=== PATIENT | female | born 1970 | race Caucasian/White ===

== ENCOUNTER 2019-04-02 05:30 | Day surgery (SDC) | payer MEDICAID ==
[2019-03-29 15:51] LABS: BASOPHILS % (AUTO) 0.3 % (0-1); EOSINOPHILS # (AUTO) 0.1 X10'3 (0-0.9); EOSINOPHILS % (AUTO) 1.3 % (0-6); LYMPHOCYTES # (AUTO) 2.2 X10'3 (1.1-4.8); LYMPHOCYTES % (AUTO) 28.9 % (21-51); MEAN CORPUSCULAR HEMOGLOBIN 24.8 PG (27.0-31.0); MEAN CORPUSCULAR HGB CONC 32.1 g/dL (33.0-36.5); MEAN CORPUSCULAR VOLUME 77.1 FL (78-98); MEAN PLATELET VOLUME 7.1 FL (7.4-10.4); MONOCYTES # (AUTO) 0.7 X10'3 (0-0.9); MONOCYTES % (AUTO) 8.5 % (2-12); NEUTROPHILS # (AUTO) 4.7 X10'3 (1.8-7.7); PRE OP HEMATOCRIT 29.5 % (35.0-45.0); PRE OP PLATELET COUNT 404 X10'3 (140-440); RED BLOOD COUNT 3.83 X10'6 (4.20-5.60)
[2019-03-29 15:53] LABS: PRE OP HEMOGLOBIN 9.5 g/dL (12.0-16.0)
[2019-03-29 15:56] LABS: ALBUMIN 3.7 G/DL (3.4-5.0); ALBUMIN/GLOBULIN RATIO 0.8 (1.1-1.5); ALKALINE PHOSPHATASE 78 IU/L (46-116); BLOOD UREA NITROGEN 18 MG/DL (7-18); BUN/CREATININE RATIO 27.3 (6.6-38.0); CALCIUM 9.1 MG/DL (8.5-10.1); CHLORIDE 108 MMOL/L (99-107); CREATININE 0.66 MG/DL (0.40-0.90); PRE OP ALT 19 U/L (30-65); PRE OP ANION GAP 12 (8-16); PRE OP AST 10 U/L (10-37); PRE OP BILIRUB, TOTAL 0.3 MG/DL (0.0-1.0); PRE OP GLUCOSE 86 MG/DL (70-104); PRE OP POTASSIUM 4.3 MMOL/L (3.4-5.1); PRE OP SODIUM 143 MMOL/L (135-145); TOTAL CARBON DIOXIDE 23.2 MMOL/L (24-32); TOTAL PROTEIN 8.4 G/DL (6.4-8.2); eGFR > 90 ML/MIN
[~2019-04-02] VITALS: Ht 172.7 cm; Wt 90.7 kg
[2019-04-02] VITALS (7 sets, daily range): BP systolic 119–127; BP diastolic 70–83
[~2019-04-02 05:30] MED LIST: TOP100T PO; TRAM50TA2 PO; ceFAZolin inj. 2,000 MG in dextrose 5%-water 50ml 50 ML IV ONE; famotidine 20mg tablet PO ONE; ringers solution, lacted 1,000 ML IV SCH
[2019-04-02] MEDS ORDERED: LIDOcaine 1% (10mg/ml) 2ml vial ONE (05:55)
[2019-04-02 06:50] LABS: ISTAT ANION GAP 13 (8-12); ISTAT BUN 14 mg/dL (6-19); ISTAT CL 109 mmol/L (99-107); ISTAT CREATININE 0.6 mg/dL (0.6-1.1); ISTAT GLUCOSE 86 mg/dL (70-104); ISTAT HGB 10.9 g/dl (12.0-16.0); ISTAT Hct 32 %PCV (35-48); ISTAT IONIZED CALCIUM 1.27 mmol/L (1.03-1.32); ISTAT K 3.5 mmol/L (3.5-5.1); ISTAT NA 141 mmol/L (135-145); ISTAT TOTAL CO2 19 mmol/L (24-32); ISTAT eGFR > 90 ML/MIN; POC BUN/CREATININE RATIO 23.3 (6.6-38.0)
[2019-04-02] MEDS ORDERED: sevoflurane 250ml liquid IH ONE (07:15)
[2019-04-02] MEDS ORDERED: fentaNYL/PF 50MCG/1 ML 2ML syringe ONE (07:24)
[2019-04-02] MEDS ORDERED: midazolam 2 mg/2 ml injection ONE ×2 (07:24)
[2019-04-02] MEDS ORDERED: triamcinolone acetonide 40mg/ml inj ONE (07:39)
[2019-04-02] MEDS ORDERED: LIDOcaine 1% 30ml preserv. free vial ONE (07:40)
[2019-04-02] MEDS ORDERED: BUPIVAcaine/PF 2.5mg/ml (0.25%) 10ml vial ONE (07:40)
--- NOTE | 2019-04-02 07:50 | NUR ---
Received from OR via BED, accompanied by Anesthesiologist DR WELSH-- and report given by Anesthesiolgist. PATIENT A&OX4, DENIES PAIN, V/S WNL, NEUROVASCULAR CHECKS INTACT, 20G PIV RUE, SCD ON, BANDAID TO LEFT SHOULDER CDI
[2019-04-02] MEDS ORDERED: ringers solution, lacted 1,000 ML IV SCH (07:55)
[2019-04-02] MEDS ORDERED: ondansetron/PF 4mg/2ml inj IV PRN (07:55)
[2019-04-02] MEDS ORDERED: proCHLORperazine 10 MG/2 ml inj IV PRN (07:55)
[2019-04-02] MEDS ORDERED: meperidine/PF 25mg/ml syringe IV PRN ×3 (07:55)
[2019-04-02] MEDS ORDERED: morphine 4 MG/ML inj SYRINge IV PRN ×2 (07:55)
[2019-04-02] MEDS ORDERED: HYDROcodone/acetaminophen 10/325mg tab PO PRN (08:10)
--- NOTE | 2019-04-02 08:40 | NUR ---
PATIENT A&OX4, DENIES PAIN, V/S WNL, NEUROVASCULAR CHECKS INTACT, 20G PIV RUE D/C, SCD OFF, BANDAID TO LEFT SHOULDER CDI. I HAVE REVIEWED D/C INSTRUCTIONS WITH PATIENT AND FAMILY AND THEY HAVE VERBALIZED UNDERSTANDING. PATIENT D/C HOME WITH ALL BELONGINGS AND FAMILY GAVE TRANSPORT HOME.
[2019-04-02] MEDS ORDERED: LIDOcaine 2% (20mg/ml) 5ml vial ONE (09:01)
[2019-04-02] MEDS ORDERED: propofol inj 20 ML IV ONE (09:01)
[2019-04-02] MEDS ORDERED: ROPIVAcaine 0.5% (5mg/ml) 30ml vial ONE (09:01)
== END 2019-04-02 08:40 | disposition home or self-care (01) ==
LOC: PAS 05:30
PROVIDERS: ATTEND Orthopaedic Surgery
PROC: 0RSKXZZ Reposition Left Shoulder Joint, External Approach (ICD-10-PCS; principal; 2019-04-02 07:15)
DX: M75.02 Adhesive capsulitis of left shoulder (principal); M25.512 Pain in left shoulder
CPT/HCPCS: 23700; 36415; 80047; 80053; 85025; J0690; J2001; J2250; J2704; J3010; J3301; J3490; J7060; J2795; J7120

== ENCOUNTER 2019-04-06 02:02 | Emergency (ER) | payer MEDICAID ==
[~2019-04-06] VITALS: Ht 172.7 cm; Wt 90.0 kg
[~2019-04-06 02:02] MED LIST changes: -ceFAZolin inj. 2,000 MG in dextrose 5%-water 50ml 50 ML IV ONE; -famotidine 20mg tablet PO ONE; -ringers solution, lacted 1,000 ML IV SCH
[2019-04-06] MEDS ORDERED: ondansetron/PF 4mg/2ml inj IV ONE (02:25)
[2019-04-06] MEDS ORDERED: normal saline 1000ML IV soln IVB ONE (02:25)
--- NOTE | 2019-04-06 02:34 | NUR ---
medical supply technician at bedside.
[2019-04-06] MEDS ORDERED: ketorolac trometh. 30mg/ml inj. IV ONE (02:35)
--- NOTE | 2019-04-06 02:35 | NUR ---
Patient states she drove self to ED and prefers to try non-narcotic pain medication first. Dr. Ledezma gives order for 30mg toradol IV.
[2019-04-06 02:39] LABS: BASOPHILS % (AUTO) 0.2 % (0-1); EOSINOPHILS % (AUTO) 0.2 % (0-6); HEMATOCRIT 30.4 % (35.0-45.0); HEMOGLOBIN 9.8 g/dl (12.0-16.0); LYMPHOCYTES # (AUTO) 1.5 X10'3 (1.1-4.8); LYMPHOCYTES % (AUTO) 11.1 % (21-51); MEAN CORPUSCULAR HEMOGLOBIN 24.5 PG (27.0-31.0); MEAN CORPUSCULAR HGB CONC 32.1 g/dL (33.0-36.5); MEAN CORPUSCULAR VOLUME 76.4 FL (78-98); MEAN PLATELET VOLUME 7.1 FL (7.4-10.4); MONOCYTES # (AUTO) 1.4 X10'3 (0-0.9); MONOCYTES % (AUTO) 10.4 % (2-12); NEUTROPHILS # (AUTO) 10.4 X10'3 (1.8-7.7); NEUTROPHILS % (AUTO) 78.1 % (42-75); PLATELET COUNT 426 X10'3 (140-440); RED BLOOD COUNT 3.97 X10'6 (4.20-5.60); RED CELL DISTRIBUTION WIDTH 18.3 % (11.5-14.5); WHITE BLOOD COUNT 13.3 X10'3 (4.5-11.0)
[2019-04-06 02:53] LABS: ALANINE AMINOTRANSFERASE 17 U/L (12-78); ALBUMIN 3.7 G/DL (3.4-5.0); ALBUMIN/GLOBULIN RATIO 0.8 (1.1-1.5); ALKALINE PHOSPHATASE 72 IU/L (46-116); ANION GAP 13 (8-16); ASPARTATE AMINO TRANSFERASE 14 U/L (10-37); BILIRUBIN,TOTAL 0.3 MG/DL (0.1-1.0); BLOOD UREA NITROGEN 20 MG/DL (7-18); BUN/CREATININE RATIO 22.5 (6.6-38.0); CHLORIDE 107 MMOL/L (99-107); CREATININE 0.89 MG/DL (0.40-0.90); GLUCOSE 113 MG/DL (70-104); LIPASE 117 U/L (73-393); POTASSIUM 3.2 MMOL/L (3.5-5.1); SODIUM 141 MMOL/L (135-145); TOTAL CARBON DIOXIDE 21.4 MMOL/L (24-32); TOTAL PROTEIN 8.2 G/DL (6.4-8.2); eGFR 68 ML/MIN
[2019-04-06 03:01] LABS: CALCIUM 8.9 MG/DL (8.5-10.1)
[2019-04-06] MEDS ORDERED: HYDR-3965 PO (03:02)
[2019-04-06] MEDS ORDERED: FLO0.4C PO (03:02)
[2019-04-06 03:08] LABS: CLARITY,URINE SLIGHTLY CLOUDY (Clear); COLOR,URINE YELLOW (Yellow); GLUCOSE, URINE NEGATIVE (Neg); KETONES,URINE NEGATIVE (Neg); LEUKOCYTE ESTERASE ,URINE NEGATIVE (Neg); NITRITES, URINE NEGATIVE (Neg); OCCULT BLOOD,URINE TRACE-INTACT (Neg); PROTEIN,URINE NEGATIVE (Neg); UA COLLECTION TYPE CLN CATCH MIDSTREAM; UROBILINOGEN,URINE 0.2 E.U/dL (0.2-1.0)
[2019-04-06 03:09] LABS: URINE HCG NEGATIVE (NEG)
[2019-04-06 03:15] LABS: BACTERIA,URINE FEW /HPF (Neg); RBC,URINE 0-2 /HPF (0-2); SQUAMOUS EPITHELIAL CELL,UR MODERATE /LPF (FEW); WBC,URINE 0-4 /HPF (0-4)
[2019-04-06] MEDS ORDERED: metoclopramide 5 mg/ml inj IV ONE (03:50)
[2019-04-06] MEDS ORDERED: morphine 4 MG/ML inj SYRINge IV ONE (03:50)
--- NOTE | 2019-04-06 04:09 | NUR ---
Patient resting comfortably and reports resolution of pain. Warm blanket provided and curtain pulled closed.
--- NOTE | 2019-04-06 04:39 | NUR ---
Patient complaining of increasing pain. 4mg morphine given. Scanner is not working in the room so patient ID verified using name and date of and medication administered manually in EMR.
[2019-04-06] MEDS: morphine 4 MG/ML inj SYRINge IV PRN ×2 (04:40→05:24)
--- NOTE | 2019-04-06 05:24 | NUR ---
Patient continues to experience pain but reports that she is starting to feel better and is about ready to go home. Last ordered dose of morphine is given and she will be observed for a short time before providing a cab ride home.
[2019-04-06 05:25] VITALS: BP 144/92
[2019-04-06] MEDS ORDERED: OLANZapine 2.5MG tablet PO SCH (08:00)
[2019-04-06] MEDS ORDERED: LORazepam 1 MG tablet PO ONE (08:00)
== END 2019-04-06 05:41 | disposition home or self-care (01) ==
LOC: ER 02:02
DX: N20.0 Calculus of kidney (principal); R11.2 Nausea with vomiting, unspecified; Z91.030 Bee allergy status; Z79.899 Other long term (current) drug therapy
CPT/HCPCS: 36415; 74176; 80053; 81001; 81025; 83690; 85025; 96361; 96374; 96375; 96376; 99284; J1885; J2270; J2405; J2765; J7030

== ENCOUNTER 2019-07-30 09:00 | Inpatient (IN) | payer MEDICAID ==
[2019-07-28 10:21] LABS: CLARITY,URINE CLEAR (Clear); COLOR,URINE YELLOW (Yellow); GLUCOSE, URINE NEGATIVE (Neg); KETONES,URINE NEGATIVE (Neg); LEUKOCYTE ESTERASE ,URINE NEGATIVE (Neg); NITRITES, URINE NEGATIVE (Neg); OCCULT BLOOD,URINE TRACE-INTACT (Neg); PROTEIN,URINE NEGATIVE (Neg); UROBILINOGEN,URINE 0.2 E.U/dL (0.2-1.0)
[2019-07-28 10:21] LABS: BASOPHILS % (AUTO) 0.3 % (0-1); EOSINOPHILS # (AUTO) 0.2 X10'3 (0-0.9); EOSINOPHILS % (AUTO) 1.7 % (0-6); LYMPHOCYTES # (AUTO) 1.8 X10'3 (1.1-4.8); MEAN CORPUSCULAR HEMOGLOBIN 26.9 PG (27.0-31.0); MEAN CORPUSCULAR HGB CONC 32.7 g/dL (33.0-36.5); MEAN CORPUSCULAR VOLUME 82.4 FL (78-98); MEAN PLATELET VOLUME 7.3 FL (7.4-10.4); MONOCYTES # (AUTO) 0.6 X10'3 (0-0.9); MONOCYTES % (AUTO) 7.2 % (2-12); NEUTROPHILS # (AUTO) 6.3 X10'3 (1.8-7.7); NEUTROPHILS % (AUTO) 70.8 % (42-75); PRE OP HEMATOCRIT 36.3 % (35.0-45.0); PRE OP HEMOGLOBIN 11.9 g/dL (12.0-16.0); PRE OP PLATELET COUNT 458 X10'3 (140-440); RED CELL DISTRIBUTION WIDTH 20.9 % (11.5-14.5)
[2019-07-28 10:26] LABS: UA COLLECTION TYPE CLN CATCH MIDSTREAM
[2019-07-28 10:28] LABS: BACTERIA,URINE FEW /HPF (Neg); MUCUS STRANDS NONE SEEN /LPF (Neg); RBC,URINE 0-2 /HPF (0-2); SQUAMOUS EPITHELIAL CELL,UR MODERATE /LPF (FEW); WBC,URINE 0-4 /HPF (0-4)
[2019-07-28 10:33] LABS: PRE OP PROTIME 9.9 SECONDS (9.0-12.0)
[2019-07-28 10:35] LABS: ALBUMIN 3.7 G/DL (3.4-5.0); ALBUMIN/GLOBULIN RATIO 0.9 (1.1-1.5); ALKALINE PHOSPHATASE 77 IU/L (46-116); BLOOD UREA NITROGEN 10 MG/DL (7-18); BUN/CREATININE RATIO 16.7 (6.6-38.0); CALCIUM 9.3 MG/DL (8.5-10.1); CHLORIDE 109 MMOL/L (99-107); PRE OP ALT 33 U/L (30-65); PRE OP ANION GAP 11 (8-16); PRE OP AST 20 U/L (10-37); PRE OP BILIRUB, TOTAL 0.2 MG/DL (0.0-1.0); PRE OP GLUCOSE 96 MG/DL (70-104); PRE OP POTASSIUM 4.2 MMOL/L (3.4-5.1); PRE OP SODIUM 144 MMOL/L (135-145); TOTAL CARBON DIOXIDE 24.2 MMOL/L (24-32); eGFR > 90 ML/MIN
[2019-07-28 10:39] LABS: PLATELET ESTIMATE INCREASED
[2019-07-28 10:40] LABS: ANISOCYTOSIS 2+
[2019-07-28 10:48] LABS: HCG SERUM QL NEGATIVE
[2019-07-30] VITALS (19 sets, daily range): BP systolic 121–152; BP diastolic 60–92
[~2019-07-30] VITALS: Ht 172.7 cm; Wt 95.7 kg
[~2019-07-30 09:00] MED LIST changes: +IBUP-1984 PO; +ceFOXitin 2 GM ADDvantage bag 100 ML IV ONE; +ceFOXitin 2 GM ADDvantage bag 50 ML IV ONE; +famotidine 20mg tablet PO ONE; +ringers solution, lacted 1,000 ML IV SCH
[2019-07-30] MEDS ORDERED: propofol inj 20 ML IV ONE (12:03)
[2019-07-30] MEDS ORDERED: fentaNYL /PF 50mcg/ml 5ml ampule ONE (12:03)
[2019-07-30] MEDS ORDERED: midazolam 2 mg/2 ml injection ONE (12:03)
[2019-07-30] MEDS ORDERED: rocuronium 10mg/ml inj IV ONE (12:03)
[2019-07-30] MEDS ORDERED: sevoflurane 250ml liquid IH ONE (12:04)
[2019-07-30] MEDS ORDERED: acetaminophen 1000 MG/100ml vial IV ONE (12:04)
[2019-07-30] MEDS ORDERED: BUPIVAcaine/PF 2.5 mg/ml (0.25%) 30ml vial ONE (12:13)
[2019-07-30] MEDS ORDERED: dexamethasone sod phosphate 4mg/ml inj. ONE (13:12)
[2019-07-30] MEDS ORDERED: ceFAZolin 1000mg inj ONE ×2 (14:27→14:30)
[2019-07-30] MEDS ORDERED: fentaNYL/PF 50MCG/1 ML 2ML syringe ONE (14:34)
[2019-07-30] MEDS ORDERED: morphine 2 MG/ML inj. syringe IV PRN (14:50)
[2019-07-30] MEDS ORDERED: meperidine/PF 25mg/ml syringe IV PRN ×3 (14:50)
[2019-07-30] MEDS ORDERED: proCHLORperazine 10 MG/2 ml inj IV PRN (14:50)
[2019-07-30] MEDS ORDERED: ringers solution, lacted 1,000 ML IV SCH (14:50)
[2019-07-30] MEDS ORDERED: ketorolac trometh. 30mg/ml inj. IV ONE (14:50)
[2019-07-30] MEDS ORDERED: morphine 4 MG/ML inj SYRINge IV PRN (14:50)
[2019-07-30] MEDS ORDERED: ondansetron/PF 4mg/2ml inj IV PRN ×2 (14:50→15:20)
[2019-07-30] MEDS ORDERED: HYDROcodone/acetaminophen 10/325mg tab PO PRN ×2 (15:20)
[2019-07-30] MEDS ORDERED: temazepam 15mg capsule PO PRN (15:20)
[2019-07-30] MEDS ORDERED: naloxone 0.4 mg/ml inj IV PRN (15:20)
[2019-07-30] MEDS ORDERED: HYDROcodone/acetaminophen 5mg/325mg tablet PO PRN (15:20)
[2019-07-30] MEDS ORDERED: magnesium hydroxide 30ml (MOM) UD suspension PO PRN (15:20)
[2019-07-30] MEDS ORDERED: diphenhydrAMINE 50 mg/ml inj IV PRN (15:20)
[2019-07-30] MEDS ORDERED: mag hydrox/Alum hydrox/simeth 30ml oral suspension PO PRN (15:20)
[2019-07-30] MEDS ORDERED: normal saline 500ml IV soln 500 ML IV PRN (15:20)
[2019-07-30] MEDS ORDERED: CADD PCA waste documentation MC PRN (15:20)
[2019-07-30] MEDS ORDERED: LORazepam 2 mg/ml vial IV PRN (15:20)
[2019-07-30] MEDS ORDERED: estradiol 0.1mg patch.TDWK TD SCH (15:20)
[2019-07-30] MEDS ORDERED: glycopyrrolate 0.2mg/ml inj ONE (15:25)
[2019-07-30] MEDS ORDERED: ondansetron/PF 4mg/2ml inj ONE (15:25)
[2019-07-30] MEDS ORDERED: neostigmine methylsulfate 1 MG/ML 10ml vial ONE (15:26)
--- NOTE | 2019-07-30 15:44 | NUR ---
Received from OR via BED, accompanied by Anesthesiologist DR GARCIA and report given by Anesthesiologist. PT DROWSY, ABDOMEN W/4 LAP SITES W/BANDAIDS, CDI, ISLAND DRSG TO PUBIS CDI, MARILYN PAD IN PLACE, NO DRAINAGE, GREGORY CATHETER TO GRAVITY DRAINAGE W/LIGYHT YELLOW URINE IN TUBING. Addendum: 07/30/19 at 1626 by Alisa Saleem RN Amended: Links added.
[2019-07-30] MEDS ORDERED: traMADol 50MG tablet PO PRN (16:10)
[2019-07-30] MEDS ORDERED: ibuprofen 200mg tablet PO PRN (16:10)
[2019-07-30 16:24] LABS: BASOPHILS % (AUTO) 0 % (0-1); EOSINOPHILS % (AUTO) 0.2 % (0-6); HEMATOCRIT 30.6 % (35.0-45.0); HEMOGLOBIN 9.9 g/dl (12.0-16.0); LYMPHOCYTES # (AUTO) 1.2 X10'3 (1.1-4.8); LYMPHOCYTES % (AUTO) 6.1 % (21-51); MEAN CORPUSCULAR HEMOGLOBIN 27.2 PG (27.0-31.0); MEAN CORPUSCULAR HGB CONC 32.5 g/dL (33.0-36.5); MEAN CORPUSCULAR VOLUME 83.8 FL (78-98); MEAN PLATELET VOLUME 7.1 FL (7.4-10.4); MONOCYTES # (AUTO) 0.7 X10'3 (0-0.9); MONOCYTES % (AUTO) 3.6 % (2-12); NEUTROPHILS # (AUTO) 17.2 X10'3 (1.8-7.7); NEUTROPHILS % (AUTO) 90.1 % (42-75); PLATELET COUNT 348 X10'3 (140-440); RED BLOOD COUNT 3.66 X10'6 (4.20-5.60); RED CELL DISTRIBUTION WIDTH 20.2 % (11.5-14.5); WHITE BLOOD COUNT 19.1 X10'3 (4.5-11.0)
--- NOTE | 2019-07-30 16:41 | NUR ---
Received report from recovery room nurse Alisa DIAZ. Awaiting arrival to room 349B.
[2019-07-30] MEDS: HYDROmorphone/NS 1 mg/ml CADD 50 ML IV SCH ×4 (16:46→23:00)
[2019-07-30] MEDS ORDERED: HYDROmorphone/NS 1 mg/ml CADD 50 ML IV SCH (17:00)
--- NOTE | 2019-07-30 17:14 | NUR ---
Report called to receiving nurse. Transferred via BED, 1 BAG OF Belongings SENT W/PT TO ROOM 349B, RECEIVING RN AT BEDSIDE TO RECEIVE PT, BLL, CALL LIGHT GIVEN, SIDE RAILS UP, FRIEND AT BEDSIDE. Special Issues communicated to receiving nurse. YES. Addendum: 07/30/19 at 1726 by Alisa Saleem RN Amended: Links added.
--- NOTE | 2019-07-30 17:15 | NUR ---
Patient arrived to room 349B. VSS. Abdomen soft, lap sites CDI. Family at bedside.
[2019-07-30] MEDS: ceFAZolin 1GM/D5W- ADD-VANTAGE 50 ML IV SCH (17:49)
[2019-07-30] MEDS: ringers solution, lacted 1,000 ML IV SCH (17:50)
[2019-07-30 17:54] LABS: ANISOCYTOSIS 3+; HYPOCHROMASIA 1+; PLATELET ESTIMATE NORMAL
[2019-07-30 17:55] LABS: POLYCHROMASIA FEW
[2019-07-30] MEDS: simethicone 80mg chew tab PO SCH (17:56)
--- NOTE | 2019-07-30 18:18 | NUR ---
Patient in room [facility]. I have received report from EMILY Fink and had the opportunity to ask questions and assume patient care.
--- NOTE | 2019-07-30 18:18 | NUR ---
Problems reprioritized. Patient report given, questions answered & plan of care reviewed with Paloma DIAZ.
[2019-07-30] MEDS: docusate sod 100mg capsule PO SCH (20:00)
[2019-07-30] MEDS: topiramate 100mg tablet PO SCH (21:18)
[2019-07-30] MEDS: sennosides/docusate sodium tablet PO SCH (21:18)
[2019-07-31] MEDS: ceFAZolin 1GM/D5W- ADD-VANTAGE 50 ML IV SCH ×2 (00:14→08:34)
[2019-07-31 00:15] VITALS: BP 120/73
[2019-07-31] MEDS: ringers solution, lacted 1,000 ML IV SCH ×2 (00:17→07:19)
[2019-07-31] MEDS: HYDROmorphone/NS 1 mg/ml CADD 50 ML IV SCH ×6 (01:00→11:00)
[2019-07-31 04:30] VITALS: BP 111/66
[2019-07-31 05:22] LABS: BASOPHILS % (AUTO) 0.1 % (0-1); EOSINOPHILS % (AUTO) 0 % (0-6); HEMATOCRIT 26.8 % (35.0-45.0); HEMOGLOBIN 8.8 g/dl (12.0-16.0); LYMPHOCYTES # (AUTO) 1.4 X10'3 (1.1-4.8); MEAN CORPUSCULAR HGB CONC 32.7 g/dL (33.0-36.5); MEAN CORPUSCULAR VOLUME 82.5 FL (78-98); MEAN PLATELET VOLUME 7.2 FL (7.4-10.4); MONOCYTES # (AUTO) 1.1 X10'3 (0-0.9); NEUTROPHILS # (AUTO) 11.7 X10'3 (1.8-7.7); NEUTROPHILS % (AUTO) 81.9 % (42-75); PLATELET COUNT 324 X10'3 (140-440); RED BLOOD COUNT 3.25 X10'6 (4.20-5.60); WHITE BLOOD COUNT 14.2 X10'3 (4.5-11.0)
[2019-07-31 05:27] LABS: ALANINE AMINOTRANSFERASE 27 U/L (12-78); ALBUMIN 2.8 G/DL (3.4-5.0); ALBUMIN/GLOBULIN RATIO 0.8 (1.1-1.5); ALKALINE PHOSPHATASE 58 IU/L (46-116); ANION GAP 8 (8-16); ASPARTATE AMINO TRANSFERASE 18 U/L (10-37); BILIRUBIN,TOTAL 0.7 MG/DL (0.1-1.0); BLOOD UREA NITROGEN 7 MG/DL (7-18); BUN/CREATININE RATIO 13.5 (6.6-38.0); CALCIUM 8.5 MG/DL (8.5-10.1); CHLORIDE 110 MMOL/L (99-107); CREATININE 0.52 MG/DL (0.40-0.90); GLUCOSE 105 MG/DL (70-104); POTASSIUM 4.1 MMOL/L (3.5-5.1); SODIUM 141 MMOL/L (135-145); TOTAL PROTEIN 6.4 G/DL (6.4-8.2); eGFR > 90 ML/MIN
--- NOTE | 2019-07-31 05:30 | NUR ---
Zimmerman catheter removed, per order. Patient tolerated procedure well. Hat placed in toilet and instructed pt to use toilet. Patient agrees. Will continue to monitor patient.
--- NOTE | 2019-07-31 06:45 | NUR ---
Problems reprioritized. Patient report given, questions answered & plan of care reviewed with Maria Antonia Gtz RN.
--- NOTE | 2019-07-31 06:59 | NUR ---
Patient in room [facility]. I have received report from EMILY MENDEZ and had the opportunity to ask questions and assume patient care.
[2019-07-31 07:23] LABS: ANISOCYTOSIS 2+; ELLIPTOCYTES 1+; HYPOCHROMASIA 1+; PLATELET ESTIMATE NORMAL; POLYCHROMASIA 1+
[2019-07-31 08:00] VITALS: BP 94/54
[2019-07-31] MEDS: topiramate 100mg tablet PO SCH (08:35)
[2019-07-31] MEDS: docusate sod 100mg capsule PO SCH (08:35)
[2019-07-31] MEDS: simethicone 80mg chew tab PO SCH ×2 (08:35→13:21)
[2019-07-31] MEDS: sennosides/docusate sodium tablet PO SCH (08:35)
[2019-07-31 11:00] VITALS: BP 109/68
--- NOTE | 2019-07-31 13:25 | NUR ---
DROPPED SIMETHICONE ON GROUND, WASTED IT IN OMNI-CELL AND GOT ANOTHER PILL
--- NOTE | 2019-07-31 16:20 | NUR ---
PATIENT APPROPRIATE AND STABLE FOR DISCHARGE, IV TAKEN OUT EDUCATION GIVEN, SCRIPT FOR [place]CO GIVEN TO PATIENT, ALL BELONGINGS SENT WITH PATIENT, PATIENT TAKEN TO LOBBY IN WHEELCHAIR TO AN AWAITING CAR WHERE FRIEND WILL TAKE PATIENT HOME
== END 2019-07-31 16:20 | disposition home or self-care (01) | DRG 519 ==
LOC: PAS 09:00 → SUR 3N 15:26
PROVIDERS: ADMIT Obstetrics & Gynecology; ATTEND Obstetrics & Gynecology
PROC: 0UT20ZZ Resection of Bilateral Ovaries, Open Approach (ICD-10-PCS; 2019-07-30)
PROC: 0UT70ZZ Resection of Bilateral Fallopian Tubes, Open Approach (ICD-10-PCS; 2019-07-30)
PROC: 8E0W0CZ Robotic Assisted Procedure of Trunk Region, Open Approach (ICD-10-PCS; 2019-07-30)
PROC: 0UJD4ZZ Inspection of Uterus and Cervix, Percutaneous Endoscopic Approach (ICD-10-PCS; 2019-07-30)
PROC: 8E0W4CZ Robotic Assisted Procedure of Trunk Region, Percutaneous Endoscopic Approach (ICD-10-PCS; 2019-07-30)
PROC: 0TJB8ZZ Inspection of Bladder, Via Natural or Artificial Opening Endoscopic (ICD-10-PCS; 2019-07-30)
PROC: 0UT90ZL Resection of Uterus, Supracervical, Open Approach (ICD-10-PCS; principal; 2019-07-30 12:04)
DX: D25.9 Leiomyoma of uterus, unspecified (principal); D64.9 Anemia, unspecified; K66.0 Peritoneal adhesions (postprocedural) (postinfection); N93.9 Abnormal uterine and vaginal bleeding, unspecified; Z87.42 Personal history of other diseases of the female genital tract
CPT/HCPCS: 36415; 74018; 80053; 81001; 82948; 84703; 85025; 85610; 85730; 86885; 86900; 86901; 93005; A4618; A7000; C1758; G0378; J0131; J0690; J0694; J1100; J1170; J1885; J2175; J2250; J2405; J2704; J2710; J3010; J3490; J7120

== ENCOUNTER 2019-08-04 10:22 | Emergency (ER) | payer MEDICAID ==
[~2019-08-04] VITALS: Ht 172.7 cm; Wt 82.5 kg
[~2019-08-04 10:22] MED LIST changes: -ceFOXitin 2 GM ADDvantage bag 100 ML IV ONE; -ceFOXitin 2 GM ADDvantage bag 50 ML IV ONE; -famotidine 20mg tablet PO ONE; -ringers solution, lacted 1,000 ML IV SCH
[2019-08-04] MEDS ORDERED: morphine 4 MG/ML inj SYRINge IV ONE (11:45)
[2019-08-04] MEDS ORDERED: ondansetron/PF 4mg/2ml inj IV ONE (11:45)
--- NOTE | 2019-08-04 12:02 | NUR ---
STARTED PT IV AND BLOOD DRAWN PER ORDERS, PT STATES SHE DROVE HERE TODAY AND DOES NOT WANT TO TAKE MORPHINE, ANA ROSA HAYES INFORMED, ORDERS TO FOLLOW FOR TORODAL
[2019-08-04 12:08] LABS: BASOPHILS % (AUTO) 0.5 % (0-1); EOSINOPHILS # (AUTO) 0.3 X10'3 (0-0.9); EOSINOPHILS % (AUTO) 3.3 % (0-6); HEMATOCRIT 29.6 % (35.0-45.0); HEMOGLOBIN 9.7 g/dl (12.0-16.0); LYMPHOCYTES # (AUTO) 1.8 X10'3 (1.1-4.8); MEAN CORPUSCULAR HEMOGLOBIN 27.3 PG (27.0-31.0); MEAN CORPUSCULAR HGB CONC 32.7 g/dL (33.0-36.5); MEAN CORPUSCULAR VOLUME 83.4 FL (78-98); MEAN PLATELET VOLUME 6.9 FL (7.4-10.4); MONOCYTES # (AUTO) 0.6 X10'3 (0-0.9); MONOCYTES % (AUTO) 6.8 % (2-12); NEUTROPHILS # (AUTO) 5.9 X10'3 (1.8-7.7); NEUTROPHILS % (AUTO) 68.4 % (42-75); PLATELET COUNT 428 X10'3 (140-440); RED BLOOD COUNT 3.55 X10'6 (4.20-5.60); WHITE BLOOD COUNT 8.7 X10'3 (4.5-11.0)
[2019-08-04 12:23] LABS: ALANINE AMINOTRANSFERASE 43 U/L (12-78); ALBUMIN 3.5 G/DL (3.4-5.0); ALBUMIN/GLOBULIN RATIO 0.8 (1.1-1.5); ALKALINE PHOSPHATASE 83 IU/L (46-116); ANION GAP 6 (8-16); ASPARTATE AMINO TRANSFERASE 25 U/L (10-37); BILIRUBIN,TOTAL 0.3 MG/DL (0.1-1.0); BLOOD UREA NITROGEN 11 MG/DL (7-18); CALCIUM 8.8 MG/DL (8.5-10.1); CHLORIDE 108 MMOL/L (99-107); CREATININE 0.58 MG/DL (0.40-0.90); GLUCOSE 87 MG/DL (70-104); POTASSIUM 3.9 MMOL/L (3.5-5.1); SODIUM 143 MMOL/L (135-145); TOTAL CARBON DIOXIDE 28.7 MMOL/L (24-32); TOTAL PROTEIN 7.8 G/DL (6.4-8.2); eGFR > 90 ML/MIN
[2019-08-04] MEDS ORDERED: ketorolac tromethamine 15mg/ml inj. IV ONE (12:40)
[2019-08-04 12:46] LABS: CLARITY,URINE CLOUDY (Clear); COLOR,URINE YELLOW (Yellow); GLUCOSE, URINE NEGATIVE (Neg); KETONES,URINE NEGATIVE (Neg); LEUKOCYTE ESTERASE ,URINE NEGATIVE (Neg); NITRITES, URINE NEGATIVE (Neg); OCCULT BLOOD,URINE NEGATIVE (Neg); PH,URINE 7.5 (4.8-8.0); PROTEIN,URINE NEGATIVE (Neg); UA COLLECTION TYPE CLN CATCH MIDSTREAM; UROBILINOGEN,URINE 0.2 E.U/dL (0.2-1.0)
[2019-08-04 13:01] LABS: AMORPHOUS PHOSPHATES 3+; SQUAMOUS EPITHELIAL CELL,UR MANY /LPF (FEW)
[2019-08-04 13:03] LABS: BACTERIA,URINE FEW /HPF (Neg); RBC,URINE 0-2 /HPF (0-2); WBC,URINE 0-4 /HPF (0-4)
[2019-08-04 13:19] LABS: ANISOCYTOSIS 2+; PLATELET ESTIMATE NORMAL; POLYCHROMASIA FEW
[2019-08-04] MEDS ORDERED: iohexol 300mg/ml 100ml inj. ONE (13:20)
[2019-08-04 13:22] LABS: ELLIPTOCYTES 1+
[2019-08-04 13:23] LABS: HYPOCHROMASIA 1+
[2019-08-04 14:19] VITALS: BP 117/70
[2019-08-04] MEDS ORDERED: CLIN-90 PO (15:11)
[2019-08-04] MEDS ORDERED: HYDR-4383 PO (15:11)
== END 2019-08-04 15:36 | disposition home or self-care (01) ==
LOC: ER 10:23
DX: G89.18 Other acute postprocedural pain (principal); R10.31 Right lower quadrant pain; Z90.710 Acquired absence of both cervix and uterus; Z91.030 Bee allergy status; Z79.899 Other long term (current) drug therapy
CPT/HCPCS: 36415; 74177; 80053; 81001; 85025; 85610; 96374; 99285; J1885; Q9967

== ENCOUNTER 2020-07-03 12:39 | Outpatient (CLI) | payer MEDICAID ==
[~2020-07-03 12:39] MED LIST changes: +CLIN-97 PO; +HYDR-4383 PO
== END 2020-07-03 23:59 | disposition home or self-care (01) ==
LOC: VAS 12:39
PROVIDERS: ATTEND Family Medicine
DX: I83.11 Varicose veins of right lower extremity with inflammation (principal); R59.9 Enlarged lymph nodes, unspecified
CPT/HCPCS: 93970

== ENCOUNTER 2020-10-19 10:21 | Emergency (ER) | payer MEDICAID ==
[~2020-10-19] VITALS: Ht 172.7 cm; Wt 97.7 kg
[2020-10-19 10:24] VITALS: BP 134/65
== END 2020-10-19 11:44 | disposition home or self-care (01) ==
LOC: ER 10:21
DX: R07.89 Other chest pain (principal); M54.89 Other dorsalgia; Z87.01 Personal history of pneumonia (recurrent); Z90.710 Acquired absence of both cervix and uterus; Z91.030 Bee allergy status; Z79.899 Other long term (current) drug therapy
CPT/HCPCS: 71046; 93005; 99283

== ENCOUNTER 2021-09-18 18:29 | Emergency (ER) | payer MEDICAID ==
[~2021-09-18] VITALS: Ht 170.2 cm; Wt 106.8 kg
[2021-09-18 18:39] VITALS: BP 156/90
== END 2021-09-18 21:35 | disposition home or self-care (01) ==
LOC: ER 18:30
DX: M17.12 Unilateral primary osteoarthritis, left knee (principal); M25.562 Pain in left knee; G89.29 Other chronic pain; Z87.01 Personal history of pneumonia (recurrent); Z90.710 Acquired absence of both cervix and uterus; Z98.890 Other specified postprocedural states; Z91.030 Bee allergy status; Z79.2 Long term (current) use of antibiotics; Z79.899 Other long term (current) drug therapy
CPT/HCPCS: 73564; 99283

== ENCOUNTER 2022-04-19 13:08 | Emergency (ER) | payer MEDICAID ==
[~2022-04-19] VITALS: Ht 170.2 cm; Wt 100.0 kg
[2022-04-19 14:47] VITALS: BP 140/68
[2022-04-19] MEDS ORDERED: ketorolac trometh. 30mg/ml inj. IM ONE (14:50)
[2022-04-19 15:08] LABS: BASOPHILS % (AUTO) 0.5 % (0-1); EOSINOPHILS # (AUTO) 0.1 X10'3 (0-0.9); EOSINOPHILS % (AUTO) 1.5 % (0-6); HEMATOCRIT 38.7 % (35.0-45.0); HEMOGLOBIN 12.8 g/dl (12.0-16.0); LYMPHOCYTES # (AUTO) 2.4 X10'3 (1.1-4.8); LYMPHOCYTES % (AUTO) 25.3 % (21-51); MEAN CORPUSCULAR HEMOGLOBIN 29.4 PG (27.0-31.0); MEAN CORPUSCULAR HGB CONC 33.1 g/dL (33.0-36.5); MEAN CORPUSCULAR VOLUME 88.8 FL (78-98); MONOCYTES # (AUTO) 0.7 X10'3 (0-0.9); MONOCYTES % (AUTO) 7.1 % (2-12); NEUTROPHILS # (AUTO) 6.2 X10'3 (1.8-7.7); NEUTROPHILS % (AUTO) 65.6 % (42-75); PLATELET COUNT 380 X10'3 (140-440); RED BLOOD COUNT 4.35 X10'6 (4.20-5.60); RED CELL DISTRIBUTION WIDTH 14.1 % (11.5-14.5); WHITE BLOOD COUNT 9.5 X10'3 (4.5-11.0)
[2022-04-19 15:21] LABS: ALANINE AMINOTRANSFERASE 34 U/L (12-78); ALBUMIN 3.7 G/DL (3.4-5.0); ALBUMIN/GLOBULIN RATIO 0.8 (1.1-1.5); ALKALINE PHOSPHATASE 96 IU/L (46-116); ANION GAP 10 (8-16); ASPARTATE AMINO TRANSFERASE 24 U/L (10-37); BILIRUBIN,TOTAL 0.5 MG/DL (0.1-1.0); BLOOD UREA NITROGEN 12 MG/DL (7-18); BUN/CREATININE RATIO 21.4 (6.6-38.0); CALCIUM 9.2 MG/DL (8.5-10.1); CHLORIDE 107 MMOL/L (99-107); CREATININE 0.56 MG/DL (0.40-0.90); GLUCOSE 80 MG/DL (70-104); LIPASE 88 U/L (73-393); POTASSIUM 4.1 MMOL/L (3.5-5.1); SODIUM 140 MMOL/L (135-145); TOTAL CARBON DIOXIDE 23.4 MMOL/L (24-32); TOTAL PROTEIN 8.1 G/DL (6.4-8.2); eGFR > 90 ML/MIN
[2022-04-19 15:41] LABS: CLARITY,URINE CLEAR (Clear); COLOR,URINE YELLOW (Yellow); GLUCOSE, URINE NEGATIVE (Neg); KETONES,URINE NEGATIVE (Neg); LEUKOCYTE ESTERASE ,URINE NEGATIVE (Neg); NITRITES, URINE NEGATIVE (Neg); OCCULT BLOOD,URINE NEGATIVE (Neg); PROTEIN,URINE NEGATIVE (Neg); UROBILINOGEN,URINE 0.2 E.U/dL (0.2-1.0)
[2022-04-19 15:48] LABS: UA COLLECTION TYPE CLN CATCH MIDSTREAM
[2022-04-19] MEDS ORDERED: ORPH100T2 PO (15:54)
== END 2022-04-19 16:44 | disposition home or self-care (01) ==
LOC: ER 13:09
DX: M54.50 Low back pain, unspecified (principal); Z91.030 Bee allergy status; Z90.710 Acquired absence of both cervix and uterus
CPT/HCPCS: 36415; 80053; 81003; 83690; 85025; 96372; 99283; J1885

== ENCOUNTER 2022-10-10 20:21 | Emergency (ER) | payer MEDICAID ==
[~2022-10-10] VITALS: Ht 170.2 cm; Wt 104.0 kg
[~2022-10-10 20:21] MED LIST changes: +ORPH100T4 PO
[2022-10-10] MEDS ORDERED: ketorolac trometh inj. 60 MG/2 ML VIAL IM ONE (21:50)
[2022-10-10] MEDS ORDERED: orphenadrine citrate 60mg/2ml inj. IM ONE (21:50)
[2022-10-10] MEDS ORDERED: LIDOcaine 5% patch TP STA (21:50)
[2022-10-10] MEDS ORDERED: IBUP-1986 PO (22:32)
[2022-10-10] MEDS ORDERED: CYCL-1 PO (22:32)
[2022-10-10 23:04] VITALS: BP 122/80
== END 2022-10-10 23:06 | disposition home or self-care (01) ==
LOC: ER 20:22
DX: M43.6 Torticollis (principal); Z87.442 Personal history of urinary calculi; Z90.710 Acquired absence of both cervix and uterus; Z91.030 Bee allergy status; Z79.899 Other long term (current) drug therapy
CPT/HCPCS: 70450; 96372; 99284; J1885; J2360